=== PATIENT | female | born 1990 | race African-American/Black ===

== ENCOUNTER 2017-01-03 07:04 | Emergency (ER) | payer MEDICAID, OTHER ==
[~2017-01-03] VITALS: Ht 180.3 cm; Wt 81.6 kg
[2017-01-03 07:16] VITALS: BP 135/76
[2017-01-03] MEDS ORDERED: KETOROLAC TROMETH 60MG/2ML VIAL IM ONE (07:45)
[2017-01-03] MEDS ORDERED: ALPRAZolam 0.5 MG TAB PO ONE (07:45)
== END 2017-01-03 09:17 | disposition home or self-care (01) ==
LOC: ER 07:18
DX: F41.9 Anxiety disorder, unspecified (principal); Z88.6 Allergy status to analgesic agent; Z88.8 Allergy status to other drugs, medicaments and biological substances
CPT/HCPCS: 96372; 99284; J1885

== ENCOUNTER 2017-07-10 11:06 | Emergency (ER) | payer MEDICAID, OTHER ==
[~2017-07-10] VITALS: Ht 180.3 cm; Wt 89.4 kg
[2017-07-10 11:11] VITALS: BP 120/68
[2017-07-10 11:34] LABS: Basophils # (auto) 0 uL; Basophils % (auto) 0.4 % (0.0-2.0); Eosinophils # (auto) 0.1 uL; Eosinophils % (auto) 1.6 % (0.0-7.0); Hematocrit 42.9 % (36.0-46.0); Hemoglobin 14.4 g/dL (12.2-16.2); Lymphocytes # (auto) 1.6 uL; Lymphocytes % (auto) 31.5 % (10.0-50.0); Mean Corpuscular Hemoglobin 29.4 pg (28.0-32.0); Mean Corpuscular Hgb Conc. 33.5 g/dL (32.0-36.0); Mean Corpuscular Volume 87.8 fL (80.0-100.0); Mean Platelet Volume 7.9 fL (6.9-10.8); Monocytes # (auto) 0.2 uL; Monocytes % (auto) 3.8 % (0.0-12.0); Neutrophils # (auto) 3.1 uL; Neutrophils % (auto) 62.7 % (37.0-80.0); Nucleated Red Blood Cells % 0.2 %; Platelet Count (auto) 238 10^3/uL (140-450); Red Cell Distribution Width 13.8 % (11.8-14.3); White Blood Cell 4.9 10^3/uL (4.4-10.8)
[2017-07-10 11:55] LABS: Albumin 3.6 g/dL (3.4-5.0); BUN/Creatinine Ratio 10.9; Bilirubin, Total 0.3 mg/dL (0.2-1.0); Potassium 4.1 mmol/L (3.5-5.1); Total Protein 7.8 g/dL (6.4-8.2)
[2017-07-10 13:41] LABS: Urine Bilirubin Negative (Negative); Urine Blood Negative /uL (Negative); Urine Color Yellow (Yellow); Urine Glucose Normal (Normal); Urine Ketone Negative (Negative); Urine Mucus FEW (None Seen); Urine Nitrite Negative (Negative); Urine RBC <1 /hpf (0 - 4); Urine Sperm PRESENT /hpf (None Seen); Urine Squamous Epithelial Cell FEW /hpf (<5); Urine Urobilinogen Normal (Negative); Urine pH 6.5 (5.0-8.0)
== END 2017-07-10 14:59 | disposition left against medical advice (07) ==
LOC: ER 11:06
DX: O20.9 Hemorrhage in early pregnancy, unspecified (principal); Z3A.00 Weeks of gestation of pregnancy not specified; Z53.21 Procedure and treatment not carried out due to patient leaving prior to being seen by health care provider
CPT/HCPCS: 36415; 76801; 76817; 80053; 81001; 84702; 85025

== ENCOUNTER 2017-08-14 08:11 | Emergency (ER) | payer MEDICAID ==
[~2017-08-14] VITALS: Ht 177.8 cm; Wt 81.6 kg
[2017-08-14 08:50] LABS: Urine Bilirubin Negative (Negative); Urine Blood 3+ /uL (Negative); Urine Color Red (Yellow); Urine Glucose Normal (Normal); Urine Ketone TRACE (Negative); Urine Mucus FEW (None Seen); Urine Nitrite Negative (Negative); Urine RBC 1266 /hpf (0 - 4); Urine Squamous Epithelial Cell MOD /hpf (<5); Urine Urobilinogen Normal (Negative); Urine WBC Clumps PRESENT /hpf (None Seen); Urine pH 5.5 (5.0-8.0)
[2017-08-14 09:13] LABS: Basophils # (auto) 0 uL; Basophils % (auto) 0.3 % (0.0-2.0); Eosinophils # (auto) 0 uL; Hematocrit 34.3 % (36.0-46.0); Hemoglobin 11.4 g/dL (12.2-16.2); Lymphocytes # (auto) 1.4 uL; Lymphocytes % (auto) 27.5 % (10.0-50.0); Mean Corpuscular Hemoglobin 28.1 pg (28.0-32.0); Mean Corpuscular Hgb Conc. 33.1 g/dL (32.0-36.0); Mean Corpuscular Volume 84.8 fL (80.0-100.0); Mean Platelet Volume 7.9 fL (6.9-10.8); Monocytes # (auto) 0.4 uL; Monocytes % (auto) 7.7 % (0.0-12.0); Neutrophils # (auto) 3.1 uL; Neutrophils % (auto) 63.5 % (37.0-80.0); Nucleated Red Blood Cells % 0.1 %; Platelet Count (auto) 272 10^3/uL (140-450); Red Cell Distribution Width 14.1 % (11.8-14.3)
[2017-08-14 09:29] LABS: Albumin 3.7 g/dL (3.4-5.0); BUN/Creatinine Ratio 16.1; Bilirubin, Total 0.3 mg/dL (0.2-1.0); Calcium 8.8 mg/dL (8.5-10.1); Potassium 4.2 mmol/L (3.5-5.1); Total Protein 7.8 g/dL (6.4-8.2)
[2017-08-14 13:18] VITALS: BP 110/74
== END 2017-08-14 13:21 | disposition home or self-care (01) ==
LOC: ER 08:11
DX: O23.41 Unspecified infection of urinary tract in pregnancy, first trimester (principal); O03.9 Complete or unspecified spontaneous abortion without complication; Z88.6 Allergy status to analgesic agent; Z88.8 Allergy status to other drugs, medicaments and biological substances
CPT/HCPCS: 36415; 76801; 76817; 80053; 81001; 84702; 85025

== ENCOUNTER 2017-11-15 16:42 | Emergency (ER) | payer MEDICAID ==
[~2017-11-15] VITALS: Ht 180.3 cm; Wt 92.1 kg
[2017-11-15 19:13] LABS: Urine Bacteria FEW /hpf (None Seen); Urine Blood 2+ /uL (Negative); Urine Specific Gravity 1.017 (1.001-1.035); Urine WBC 1 /hpf (0 - 5)
[2017-11-15 19:30] VITALS: BP 127/75
== END 2017-11-15 19:55 | disposition home or self-care (01) ==
LOC: ER 16:48
DX: F41.9 Anxiety disorder, unspecified (principal); Z88.6 Allergy status to analgesic agent; Z88.8 Allergy status to other drugs, medicaments and biological substances
CPT/HCPCS: 71046; 81001; 81025; 93005

== ENCOUNTER 2018-01-18 08:51 | Emergency (ER) | payer MEDICAID ==
[~2018-01-18] VITALS: Ht 180.3 cm; Wt 82.6 kg
[2018-01-18 08:59] VITALS: BP 102/78
[2018-01-18] MEDS ORDERED: KETOROLAC TROMETH 60MG/2ML VIAL IM ONE (10:00)
[2018-01-18] MEDS ORDERED: ONDANSETRON ODT 4 MG TAB PO ONE (10:00)
== END 2018-01-18 10:26 | disposition home or self-care (01) ==
LOC: ER 08:51
DX: F41.1 Generalized anxiety disorder (principal); G43.909 Migraine, unspecified, not intractable, without status migrainosus; Z88.6 Allergy status to analgesic agent; Z88.8 Allergy status to other drugs, medicaments and biological substances
CPT/HCPCS: 81002; 96372; 99284; J1885; Q0162

== ENCOUNTER 2018-12-02 17:06 | Emergency (ER) | payer MEDICAID ==
[~2018-12-02] VITALS: Ht 172.7 cm; Wt 90.7 kg
[2018-12-02 18:12] LABS: Basophils # (auto) 0 uL; Basophils % (auto) 0.5 % (0.0-2.0); Eosinophils # (auto) 0 uL; Eosinophils % (auto) 0.7 % (0.0-7.0); Hematocrit 41.6 % (36.0-46.0); Hemoglobin 13.9 g/dL (12.2-16.2); Lymphocytes # (auto) 2.2 uL; Lymphocytes % (auto) 28.4 % (10.0-50.0); Mean Corpuscular Hgb Conc. 33.5 g/dL (32.0-36.0); Mean Corpuscular Volume 86.6 fL (80.0-100.0); Monocytes # (auto) 0.6 uL; Monocytes % (auto) 7.6 % (0.0-12.0); Neutrophils # (auto) 4.8 uL; Neutrophils % (auto) 62.8 % (37.0-80.0); Nucleated Red Blood Cells % 0.1 %; Platelet Count (auto) 240 10^3/uL (140-450); Red Blood Cells 4.81 10^6/uL (4.0-5.20); White Blood Cell 7.6 10^3/uL (4.4-10.8)
[2018-12-02 20:20] VITALS: BP 125/78
== END 2018-12-02 20:56 | disposition home or self-care (01) ==
LOC: ER 17:10
DX: O20.0 Threatened abortion (principal); Z3A.01 Less than 8 weeks gestation of pregnancy
CPT/HCPCS: 36415; 76801; 76817; 84702; 85025

== ENCOUNTER 2019-02-04 08:22 | Emergency (ER) | payer MEDICAID ==
[~2019-02-04] VITALS: Ht 180.3 cm; Wt 95.3 kg
[2019-02-04 09:00] VITALS: BP 130/68
[2019-02-04 09:07] LABS: Basophils # (auto) 0 uL; Basophils % (auto) 0.3 % (0.0-2.0); Eosinophils # (auto) 0 uL; Eosinophils % (auto) 0.5 % (0.0-7.0); Hematocrit 40.4 % (36.0-46.0); Hemoglobin 13.7 g/dL (12.2-16.2); Lymphocytes # (auto) 1.6 uL; Mean Corpuscular Hemoglobin 29.8 pg (28.0-32.0); Mean Corpuscular Hgb Conc. 33.9 g/dL (32.0-36.0); Mean Corpuscular Volume 88.1 fL (80.0-100.0); Monocytes # (auto) 0.4 uL; Monocytes % (auto) 5.9 % (0.0-12.0); Neutrophils # (auto) 5.2 uL; Neutrophils % (auto) 71.3 % (37.0-80.0); Platelet Count (auto) 229 10^3/uL (140-450); Red Blood Cells 4.59 10^6/uL (4.0-5.20); Red Cell Distribution Width 14.4 % (11.8-14.3); White Blood Cell 7.3 10^3/uL (4.4-10.8)
[2019-02-04 09:38] LABS: Urine Bacteria MOD /hpf (None Seen); Urine Blood Negative /uL (Negative); Urine Mucus FEW (None Seen); Urine Specific Gravity 1.018 (1.001-1.035); Urine WBC 10 /hpf (0 - 5)
== END 2019-02-04 10:22 | disposition home or self-care (01) ==
LOC: ER 08:24
DX: O20.0 Threatened abortion (principal); O23.42 Unspecified infection of urinary tract in pregnancy, second trimester; O99.342 Other mental disorders complicating pregnancy, second trimester; F41.9 Anxiety disorder, unspecified; Z3A.15 15 weeks gestation of pregnancy; Z88.6 Allergy status to analgesic agent; Z88.5 Allergy status to narcotic agent
CPT/HCPCS: 36415; 76805; 81001; 84702; 85025

== ENCOUNTER 2019-03-17 08:25 | Observation (INO) | payer MEDICAID | END 2019-03-17 11:50 | disposition home or self-care (01) | DRG 566 | LOC: LDRP 08:25 | PROVIDERS: ADMIT Obstetrics & Gynecology; ATTEND Obstetrics & Gynecology | DX: O46.92 Antepartum hemorrhage, unspecified, second trimester (principal); O26.892 Other specified pregnancy related conditions, second trimester; R51 Headache; R10.9 Unspecified abdominal pain; O99.612 Diseases of the digestive system complicating pregnancy, second trimester; K21.9 Gastro-esophageal reflux disease without esophagitis; O21.2 Late vomiting of pregnancy; Z3A.21 21 weeks gestation of pregnancy | CPT/HCPCS: 59025; 76815; 81002; G0378 ==

== ENCOUNTER 2019-03-22 07:10 | Emergency (ER) | payer MEDICAID ==
[~2019-03-22] VITALS: Ht 180.3 cm; Wt 98.0 kg
[2019-03-22 07:30] VITALS: BP 123/68
[2019-03-22] MEDS ORDERED: ONDANSETRON ODT 4 MG TAB PO ONE (07:45)
== END 2019-03-22 08:03 | disposition home or self-care (01) ==
LOC: ER 07:10
DX: O99.342 Other mental disorders complicating pregnancy, second trimester (principal); F41.9 Anxiety disorder, unspecified; Z3A.22 22 weeks gestation of pregnancy
CPT/HCPCS: 99284; Q0162

== ENCOUNTER 2019-06-01 11:15 | Observation (INO) | payer MEDICAID | END 2019-06-01 13:45 | disposition home or self-care (01) | DRG 566 | LOC: LDRP 11:15 | PROVIDERS: ADMIT Specialist; ATTEND Specialist | DX: O26.893 Other specified pregnancy related conditions, third trimester (principal); M54.9 Dorsalgia, unspecified; R10.2 Pelvic and perineal pain; R51 Headache; Z3A.32 32 weeks gestation of pregnancy | CPT/HCPCS: 59025; 76815; 81002; G0378 ==

== ENCOUNTER 2019-06-17 15:15 | Observation (INO) | payer MEDICAID ==
[~2019-06-17] VITALS: Ht 30.5 cm; Wt 0.5 kg
--- NOTE | 2019-06-17 15:39 | NUR ---
Pt declines to discuss her suicidal history any further. Pt requests not to answer any more questions at this time. Addendum: 06/17/19 at 1758 by Gregoria Stuart RN Amended: Links added.
[2019-06-17 16:31] LABS: Urine Bacteria MANY /hpf (None Seen); Urine Blood Negative /uL (Negative); Urine Mucus FEW (None Seen); Urine Specific Gravity 1.012 (1.001-1.035); Urine WBC 26 /hpf (0 - 5)
[2019-06-17] MEDS ORDERED: CEFTRIAXONE SODIUM 2 GM in D5W 5% 50 ML IV ONE (16:45)
[2019-06-17 17:00] LABS: Alcohol, Urine < 3.0 mg/dL (0-5); Amphetamine Screen, Urine NEGATIVE (NEGATIVE); Barbiturate Scree,Urine NEGATIVE (NEGATIVE); Benzodiazephine Screen, Urine NEGATIVE (NEGATIVE); Cannabinoid Screen, Urine NEGATIVE (NEGATIVE); Cocaine Screen, Urine NEGATIVE (NEGATIVE); Opiate Scree,Urine NEGATIVE (NEGATIVE); Phencyclidine Screen, Urine NEGATIVE (NEGATIVE)
[2019-06-18] MEDS ORDERED: PREN-96 PO (14:00)
== END 2019-06-17 17:05 | disposition left against medical advice (07) | DRG 566 ==
LOC: LDRP 15:15
PROVIDERS: ADMIT Specialist; ATTEND Specialist
DX: O26.893 Other specified pregnancy related conditions, third trimester (principal); M54.9 Dorsalgia, unspecified; R10.9 Unspecified abdominal pain; O99.89 Other specified diseases and conditions complicating pregnancy, childbirth and the puerperium; Z3A.35 35 weeks gestation of pregnancy
CPT/HCPCS: 59025; 80307; 81001; 81002; 87086; G0378; J0696; J7060; 96360

== ENCOUNTER 2019-07-13 08:25 | Observation (INO) | payer MEDICAID ==
[~2019-07-13 08:25] MED LIST: PREN-96 PO
== END 2019-07-13 10:30 | disposition home or self-care (01) | DRG 566 ==
LOC: LDRP 08:25
PROVIDERS: ADMIT Specialist; ATTEND Specialist
DX: O62.9 Abnormality of forces of labor, unspecified (principal); Z3A.38 38 weeks gestation of pregnancy
CPT/HCPCS: 59025; 81002; 84112; G0378

== ENCOUNTER 2019-07-18 09:32 | Observation (INO) | payer MEDICAID | END 2019-07-18 10:35 | disposition home or self-care (01) | DRG 566 | LOC: NUR 09:32 | PROVIDERS: ADMIT Obstetrics & Gynecology; ATTEND Obstetrics & Gynecology | DX: O62.9 Abnormality of forces of labor, unspecified (principal); Z3A.39 39 weeks gestation of pregnancy | CPT/HCPCS: 59025; 81002; G0378 ==

== ENCOUNTER 2019-07-26 11:48 | Emergency (ER) | payer MEDICAID ==
[~2019-07-26] VITALS: Ht 180.3 cm; Wt 97.5 kg
[2019-07-26 13:05] LABS: Urine Bacteria FEW /hpf (None Seen); Urine Blood 3+ /uL (Negative); Urine Specific Gravity 1.013 (1.001-1.035); Urine WBC 15 /hpf (0 - 5)
[2019-07-26 13:40] VITALS: BP 132/85
== END 2019-07-26 14:29 | disposition home or self-care (01) ==
LOC: ER 11:48
DX: S76.011A Strain of muscle, fascia and tendon of right hip, initial encounter (principal); N39.0 Urinary tract infection, site not specified; Z88.5 Allergy status to narcotic agent; Z88.8 Allergy status to other drugs, medicaments and biological substances; Z79.899 Other long term (current) drug therapy; X58.XXXA Exposure to other specified factors, initial encounter; Y93.89 Activity, other specified; Y92.89 Other specified places as the place of occurrence of the external cause; Y99.8 Other external cause status
CPT/HCPCS: 72131; 81001; 93971

== ENCOUNTER 2020-07-02 09:08 | Emergency (ER) | payer MEDICAID ==
[~2020-07-02] VITALS: Ht 180.3 cm; Wt 99.8 kg
[~2020-07-02 09:08] MED LIST changes: +CEPH-37 PO; +ENO100SY SC; +WARF1TAB PO
[2020-07-02 10:13] LABS: Basophils # (auto) 0 10 ^3/uL (0-0.2); Basophils % (auto) 0.3 % (0.0-2.0); Eosinophils # (auto) 0.1 10 ^3/uL (0-0.8); Eosinophils % (auto) 0.8 % (0.0-7.0); Hematocrit 43.3 % (36.0-46.0); Hemoglobin 14.5 g/dL (12.2-16.2); Lymphocytes # (auto) 1.9 10 ^3/uL (0.4-5.4); Lymphocytes % (auto) 28.1 % (10.0-50.0); Mean Corpuscular Hemoglobin 28.8 pg (28.0-32.0); Mean Corpuscular Hgb Conc. 33.6 g/dL (32.0-36.0); Mean Corpuscular Volume 85.9 fL (80.0-100.0); Monocytes # (auto) 0.4 10 ^3/uL (0-1.3); Monocytes % (auto) 5.7 % (0.0-12.0); Neutrophils # (auto) 4.4 10 ^3/uL (1.6-8.6); Neutrophils % (auto) 65.1 % (37.0-80.0); Nucleated Red Blood Cells % 0.2 %; Platelet Count (auto) 256 10^3/uL (140-450); Red Blood Cells 5.05 10^6/uL (4.0-5.20); Red Cell Distribution Width 14.1 % (11.8-14.3); White Blood Cell 6.7 10^3/uL (4.4-10.8)
[2020-07-02 10:54] LABS: Urine Bacteria MOD /hpf (None Seen); Urine Blood 3+ /uL (Negative); Urine Mucus FEW (None Seen); Urine Specific Gravity 1.019 (1.001-1.035); Urine WBC 154 /hpf (0 - 5)
[2020-07-02 11:23] VITALS: BP 127/79
[2020-07-02] MEDS ORDERED: SODIUM CHLORIDE 0.9% 1,000 ML IV ONE ×2 (11:45)
[2020-07-02] MEDS ORDERED: cefTRIAXone 1GM/50ML D5W 50 ML IV ONE (12:30)
[2020-07-02] MEDS ORDERED: FOLIC ACID 1 MG TAB PO ONE (12:30)
[2020-07-02] MEDS ORDERED: diphenhdrAMINE HCL 50 MG/1 ML VL ONE (12:49)
[2020-07-02] MEDS ORDERED: FAMOTIDINE (10MG/ML) 2ML VL IV ONE ×2 (12:50→13:00)
[2020-07-02] MEDS ORDERED: diphenhdrAMINE HCL 50 MG/1 ML VL IV ONE (13:00)
[2020-07-02 13:32] LABS: Albumin 3.4 g/dL (3.4-5.0); BUN/Creatinine Ratio 9.8; Calcium 9.3 mg/dL (8.5-10.1); Potassium 3.8 mmol/L (3.5-5.1)
[2020-07-02 13:35] LABS: Bilirubin, Total 0.3 mg/dL (0.2-1.0)
== END 2020-07-02 13:10 | disposition home or self-care (01) ==
LOC: ER 09:08
DX: O20.8 Other hemorrhage in early pregnancy (principal); O23.41 Unspecified infection of urinary tract in pregnancy, first trimester; Z88.6 Allergy status to analgesic agent; Z88.8 Allergy status to other drugs, medicaments and biological substances; Z3A.01 Less than 8 weeks gestation of pregnancy
CPT/HCPCS: 36415; 76801; 80053; 81001; 84702; 85025; 96361; 96365; 96375; 99284; J0696; J1200; J3490; J7030

== ENCOUNTER 2020-10-16 16:40 | Observation (INO) | payer MEDICAID | END 2020-10-16 18:46 | disposition home or self-care (01) | LOC: LDRP 16:40 | PROVIDERS: ADMIT Obstetrics & Gynecology; ATTEND Obstetrics & Gynecology | DX: O62.9 Abnormality of forces of labor, unspecified (principal); O26.892 Other specified pregnancy related conditions, second trimester; R51.9 Headache, unspecified; R22.0 Localized swelling, mass and lump, head; Z3A.26 26 weeks gestation of pregnancy; Z86.711 Personal history of pulmonary embolism; Z91.19 Patient's noncompliance with other medical treatment and regimen; W18.39XA Other fall on same level, initial encounter; Y93.89 Activity, other specified; Y92.89 Other specified places as the place of occurrence of the external cause; Y99.8 Other external cause status | CPT/HCPCS: 59025; 76815; 81002; 94760; G0378 ==

== ENCOUNTER 2020-12-03 11:20 | Observation (INO) | payer MEDICAID | END 2020-12-03 12:35 | disposition home or self-care (01) | LOC: LDRP 11:20 | PROVIDERS: ADMIT Specialist; ATTEND Specialist | DX: O26.893 Other specified pregnancy related conditions, third trimester (principal); R10.10 Upper abdominal pain, unspecified; Z3A.33 33 weeks gestation of pregnancy | CPT/HCPCS: 59025; 81002; G0378 ==

== ENCOUNTER 2020-12-03 12:37 | Emergency (ER) | payer MEDICAID | END 2020-12-03 13:06 | disposition left against medical advice (07) | LOC: ER 12:37 | DX: R10.9 Unspecified abdominal pain (principal); Z53.21 Procedure and treatment not carried out due to patient leaving prior to being seen by health care provider ==

== ENCOUNTER 2021-01-19 19:21 | Inpatient (IN) | payer MEDICAID ==
[~2021-01-19] VITALS: Ht 180.3 cm; Wt 103.4 kg
[2021-01-19] MEDS ORDERED: MORPHINE SULFATE 4 MG/ML SYR/VIAL IV ONE (20:15)
[2021-01-19] MEDS ORDERED: ONDANSETRON HCL 4 MG/2 ML VIAL IV ONE (20:15)
[2021-01-19 20:34] LABS: Basophils # (auto) 0.1 10 ^3/uL (0-0.2); Basophils % (auto) 0.8 % (0.0-2.0); Eosinophils # (auto) 0.1 10 ^3/uL (0-0.8); Eosinophils % (auto) 1.3 % (0.0-7.0); Hematocrit 42.6 % (36.0-46.0); Hemoglobin 14.8 g/dL (12.2-16.2); Lymphocytes # (auto) 2.3 10 ^3/uL (0.4-5.4); Lymphocytes % (auto) 32.1 % (10.0-50.0); Mean Corpuscular Hemoglobin 29.7 pg (28.0-32.0); Mean Corpuscular Hgb Conc. 34.8 g/dL (32.0-36.0); Mean Corpuscular Volume 85.2 fL (80.0-100.0); Monocytes # (auto) 0.4 10 ^3/uL (0-1.3); Monocytes % (auto) 5.8 % (0.0-12.0); Neutrophils # (auto) 4.2 10 ^3/uL (1.6-8.6); Nucleated Red Blood Cells % 0.1 %; Red Cell Distribution Width 15.9 % (11.8-14.3); White Blood Cell 7.1 10^3/uL (4.4-10.8)
[2021-01-19 20:51] LABS: Albumin 3.5 g/dL (3.4-5.0); Calcium 8.7 mg/dL (8.5-10.1); Magnesium 2.3 mg/dL (1.6-2.6)
[2021-01-19] MEDS ORDERED: IOHEXOL 350 MG/ML 100ML IJ ONE (20:52)
[2021-01-19 20:56] LABS: BUN/Creatinine Ratio 15.5; Bilirubin, Total 0.2 mg/dL (0.2-1.0); Total Protein 7.5 g/dL (6.4-8.2)
[2021-01-19] MEDS ORDERED: ENOXAPARIN SOD 100 MG/1 ML SYRINGE SC ONE (22:00)
[2021-01-19 23:16] LABS: Urine Bacteria FEW /hpf (None Seen); Urine WBC 20 /hpf (0 - 5)
[2021-01-20] MEDS ORDERED: LIDOCAINE 5% TOPICAL PATCH TOP ONE (00:15)
[2021-01-20] MEDS ORDERED: MORPHINE SULFATE INJECTION 2 MG/ML SYRG IV ONE ×2 (02:45→15:30)
[2021-01-20] MEDS ORDERED: ONDANSETRON HCL 4 MG/2 ML VIAL IV ONE (02:45)
[2021-01-20] MEDS ORDERED: OXYCODONE W/ ACETAMINOPHEN 5/325MG TABLET PO ONE (05:15)
[2021-01-20] MEDS: ACETAMINOPHEN 325 MG TAB PO PRN ×2 (11:25→21:25)
[2021-01-20 13:30] VITALS: BP 130/83
[2021-01-20 15:04] LABS: INR 1.05 (0.9-1.15); Partial Thromboplastin Time 30.1 sec (23.0-31.2)
[2021-01-20] MEDS ORDERED: MORPHINE SULFATE INJECTION 2 MG/ML SYRG IV PRN (15:30)
[2021-01-20 17:00] VITALS: BP 133/84
[2021-01-20] MEDS ORDERED: WARFARIN SODIUM 10 MG TAB PO ONE (17:00)
[2021-01-20] MEDS ORDERED: WARF5TAB71 PO (17:20)
[2021-01-20] MEDS ORDERED: ENO100SY SC (17:20)
[2021-01-20 19:13] VITALS: BP 133/84
[2021-01-20] MEDS ORDERED: levoFLOXacin 750MG 150 ML IV ONE (21:00)
[2021-01-20 21:43] LABS: Urine Bacteria NONE SEEN /hpf (None Seen); Urine Blood 2+ /uL (Negative); Urine Specific Gravity 1.013 (1.001-1.035); Urine WBC 29 /hpf (0 - 5)
[2021-01-20] MEDS ORDERED: ENOXAPARIN SOD 100 MG/1 ML SYRINGE SC SCH (22:00)
[2021-01-20] MEDS ORDERED: HYDROcodone-ACET 5/325MG TAB PO PRN (23:00)
[2021-01-20] MEDS ORDERED: levoFLOXacin 500MG 100 ML IV SCH (23:00)
[2021-01-21] MEDS ORDERED: PRENATAL VITAMIN TAB PO SCH (10:00)
[2021-01-21] MEDS ORDERED: PANTOPRAZOLE 40 MG TAB PO SCH (10:00)
== END 2021-01-20 23:40 | disposition left against medical advice (07) | DRG 134 ==
LOC: ER 19:21 → TELE 01-20 11:58 → TELE-EAST 01-20 13:30
PROVIDERS: ADMIT Internal Medicine; ATTEND Internal Medicine
DX: I26.99 Other pulmonary embolism without acute cor pulmonale (principal); E66.01 Morbid (severe) obesity due to excess calories; N39.0 Urinary tract infection, site not specified; F41.9 Anxiety disorder, unspecified; M54.9 Dorsalgia, unspecified; Z53.29 Procedure and treatment not carried out because of patient's decision for other reasons; Z68.30 Body mass index [BMI] 30.0-30.9, adult; Z86.711 Personal history of pulmonary embolism; Z20.822 Contact with and (suspected) exposure to COVID-19
CPT/HCPCS: 36415; 36600; 70450; 71275; 74176; 80053; 81001; 81015; 82805; 83735; 85025; 85379; 85610; 85730; 87040; 87086; 87426; 93005; 96372; 96374; 96375; 96376; 99291; G0378; J1956; J2405

== ENCOUNTER 2021-02-04 15:25 | Inpatient (IN) | payer MEDICAID ==
[~2021-02-04] VITALS: Ht 180.3 cm; Wt 98.7 kg
[~2021-02-04 15:25] MED LIST changes: -CEPH-37 PO; -WARF1TAB PO; +WARF5TAB71 PO
[2021-02-04 16:22] LABS: Basophils # (auto) 0 10 ^3/uL (0-0.2); Basophils % (auto) 0.3 % (0.0-2.0); Eosinophils # (auto) 0.1 10 ^3/uL (0-0.8); Eosinophils % (auto) 0.9 % (0.0-7.0); Hematocrit 42.3 % (36.0-46.0); Lymphocytes # (auto) 2.1 10 ^3/uL (0.4-5.4); Lymphocytes % (auto) 21.5 % (10.0-50.0); Mean Corpuscular Hemoglobin 29.9 pg (28.0-32.0); Mean Corpuscular Hgb Conc. 35.5 g/dL (32.0-36.0); Mean Corpuscular Volume 84.2 fL (80.0-100.0); Monocytes # (auto) 0.6 10 ^3/uL (0-1.3); Monocytes % (auto) 6.4 % (0.0-12.0); Neutrophils # (auto) 6.9 10 ^3/uL (1.6-8.6); Neutrophils % (auto) 70.9 % (37.0-80.0); Nucleated Red Blood Cells % 0.7 %; Platelet Count (auto) 262 10^3/uL (140-450); Red Blood Cells 5.02 10^6/uL (4.0-5.20); Red Cell Distribution Width 16.1 % (11.8-14.3); White Blood Cell 9.7 10^3/uL (4.4-10.8)
[2021-02-04 16:33] LABS: Albumin 3.5 g/dL (3.4-5.0); Anion Gap 7 (5-15); Blood Urea Nitrogen 11 mg/dL (7-18); Carbon Dioxide 25 mmol/L (21-32); Chloride 104 mmol/L (98-107); Glucose 106 mg/dL (74-106); Magnesium 2.4 mg/dL (1.6-2.6); Potassium 4.1 mmol/L (3.5-5.1); Sodium 136 mmol/L (136-145)
[2021-02-04 16:39] LABS: Alanine Aminotransferase 22 U/L (13-56); Alkaline Phosphatase 99 U/L (45-117); Aspartate Aminotransferase 7 U/L (15-37); BUN/Creatinine Ratio 19.3; Bilirubin, Total 0.3 mg/dL (0.2-1.0); GFR African American 159 mL/min; GFR Non-African American 131 mL/min
[2021-02-04] MEDS ORDERED: MORPHINE SULF INJ 2 MG/ML SYRINGE 1ML IV ONE (17:30)
[2021-02-04] MEDS ORDERED: ONDANSETRON HCL 4 MG/2 ML VIAL IV ONE (17:30)
[2021-02-04] MEDS: AZITHROMYCIN 500MG/ 250ML 250 ML IV ONE ×2 (17:45→18:00)
[2021-02-04 17:48] LABS: INR 1.18 (0.9-1.15); Partial Thromboplastin Time 27.2 sec (23.0-31.2)
[2021-02-04] MEDS ORDERED: ACETAMINOPHEN 325 MG TAB PO PRN (18:30)
[2021-02-04] MEDS ORDERED: MORPHINE SULF INJ 2 MG/ML SYRINGE 1ML IV PRN ×2 (18:30→20:15)
[2021-02-04] MEDS ORDERED: ONDANSETRON HCL 4 MG/2 ML VIAL IV PRN ×2 (18:30→20:15)
[2021-02-04] MEDS ORDERED: NITROGLYCERIN 0.4 MG SL TAB SL PRN (18:30)
[2021-02-04] MEDS ORDERED: HEPARIN DRIP/D5W 100UNITS/ML 250 ML IV SCH (18:30)
[2021-02-04] MEDS ORDERED: HEPARIN SODIUM (PORCINE) 5000 UNITS/ML 1ML VIAL IV ONE (18:30)
[2021-02-04] MEDS ORDERED: IOHEXOL 350 MG/ML 100ML IJ ONE (18:44)
[2021-02-04 19:02] LABS: Basophils # (auto) 0 10 ^3/uL (0-0.2); Basophils % (auto) 0.2 % (0.0-2.0); Eosinophils # (auto) 0.1 10 ^3/uL (0-0.8); Hematocrit 42.8 % (36.0-46.0); Hemoglobin 14.9 g/dL (12.2-16.2); Lymphocytes # (auto) 2.4 10 ^3/uL (0.4-5.4); Lymphocytes % (auto) 23.5 % (10.0-50.0); Mean Corpuscular Hemoglobin 29.3 pg (28.0-32.0); Mean Corpuscular Hgb Conc. 34.7 g/dL (32.0-36.0); Mean Corpuscular Volume 84.5 fL (80.0-100.0); Monocytes # (auto) 0.7 10 ^3/uL (0-1.3); Neutrophils # (auto) 6.9 10 ^3/uL (1.6-8.6); Neutrophils % (auto) 68.3 % (37.0-80.0); Nucleated Red Blood Cells % 0.1 %; Platelet Count (auto) 265 10^3/uL (140-450); Red Blood Cells 5.06 10^6/uL (4.0-5.20); Red Cell Distribution Width 15.8 % (11.8-14.3); White Blood Cell 10.2 10^3/uL (4.4-10.8)
[2021-02-04] MEDS ORDERED: HEPARIN SODIUM (PORCINE) 5000 UNITS/ML 1ML VIAL ONE (20:02)
[2021-02-04] MEDS ORDERED: ALBUTEROL SULF 2.5 MG/0.5ML(0.5%) NEB SOLN NEB PRN (21:15)
[2021-02-04 21:30] VITALS: BP 119/80
[2021-02-04] MEDS: ALPRAZolam 0.25 MG TAB PO PRN (21:35)
[2021-02-04] MEDS: HYDROmorphone HCL 2 MG/ML VL IV PRN (21:35)
[2021-02-04] MEDS ORDERED: HYDROmorphone HCL 2 MG/ML VL IV PRN (23:00)
[2021-02-04] MEDS ORDERED: HYDROcodone-ACET 10/325MG TAB PO PRN (23:00)
[2021-02-05] MEDS: levoFLOXacin 500MG 100 ML IV SCH ×2 (01:17→09:11)
[2021-02-05 01:22] VITALS: BP 112/77
[2021-02-05] MEDS ORDERED: ACET-1156 PO (01:57)
[2021-02-05] MEDS: SOD CHL 0.45% 1,000 ML IV SCH ×3 (02:17→15:09)
[2021-02-05] MEDS: HYDROmorphone HCL 2 MG/ML VL IV PRN ×5 (03:54→22:02)
[2021-02-05] MEDS: ALPRAZolam 0.25 MG TAB PO PRN ×2 (04:08→16:08)
[2021-02-05 05:00] VITALS: BP 114/67
[2021-02-05 07:33] LABS: Basophils # (auto) 0 10 ^3/uL (0-0.2); Basophils % (auto) 0.3 % (0.0-2.0); Eosinophils # (auto) 0.1 10 ^3/uL (0-0.8); Eosinophils % (auto) 0.9 % (0.0-7.0); Hemoglobin 14.8 g/dL (12.2-16.2); Lymphocytes # (auto) 1.9 10 ^3/uL (0.4-5.4); Lymphocytes % (auto) 19.4 % (10.0-50.0); Mean Corpuscular Hemoglobin 29.5 pg (28.0-32.0); Mean Corpuscular Hgb Conc. 35.2 g/dL (32.0-36.0); Mean Corpuscular Volume 83.8 fL (80.0-100.0); Monocytes # (auto) 0.6 10 ^3/uL (0-1.3); Monocytes % (auto) 6.4 % (0.0-12.0); Nucleated Red Blood Cells % 0.1 %; Platelet Count (auto) 248 10^3/uL (140-450); Red Blood Cells 5.01 10^6/uL (4.0-5.20); Red Cell Distribution Width 15.8 % (11.8-14.3); White Blood Cell 9.6 10^3/uL (4.4-10.8)
[2021-02-05 07:49] LABS: BUN/Creatinine Ratio 11.9; Calcium 9.2 mg/dL (8.5-10.1); Magnesium 2.1 mg/dL (1.6-2.6); Potassium 4.7 mmol/L (3.5-5.1)
[2021-02-05 07:56] LABS: INR 1.26 (0.9-1.15)
[2021-02-05 09:00] VITALS: BP 108/82
[2021-02-05] MEDS: HEPARIN DRIP/D5W 100UNITS/ML 250 ML IV SCH ×2 (09:03→15:59)
[2021-02-05 13:00] VITALS: BP 111/72
[2021-02-05 16:30] LABS: INR 1.18 (0.9-1.15)
[2021-02-05 17:06] VITALS: BP 123/72
[2021-02-05 22:14] VITALS: BP 115/72
[2021-02-05 23:15] LABS: INR 1.18 (0.9-1.15); Partial Thromboplastin Time 68.9 sec (23.0-31.2)
[2021-02-06] MEDS: SOD CHL 0.45% 1,000 ML IV SCH ×3 (00:21→20:40)
[2021-02-06] MEDS: HYDROmorphone HCL 2 MG/ML VL IV PRN ×5 (02:56→20:46)
[2021-02-06 04:00] VITALS: BP 119/66
[2021-02-06] MEDS: HEPARIN DRIP/D5W 100UNITS/ML 250 ML IV SCH ×2 (05:28→22:25)
[2021-02-06 05:38] LABS: Basophils # (auto) 0 10 ^3/uL (0-0.2); Basophils % (auto) 0.6 % (0.0-2.0); Eosinophils # (auto) 0.1 10 ^3/uL (0-0.8); Eosinophils % (auto) 1.2 % (0.0-7.0); Hematocrit 39.3 % (36.0-46.0); Hemoglobin 13.7 g/dL (12.2-16.2); Lymphocytes # (auto) 2.2 10 ^3/uL (0.4-5.4); Lymphocytes % (auto) 29.6 % (10.0-50.0); Mean Corpuscular Hemoglobin 29.4 pg (28.0-32.0); Mean Corpuscular Hgb Conc. 34.8 g/dL (32.0-36.0); Mean Corpuscular Volume 84.4 fL (80.0-100.0); Monocytes # (auto) 0.6 10 ^3/uL (0-1.3); Monocytes % (auto) 7.3 % (0.0-12.0); Neutrophils # (auto) 4.6 10 ^3/uL (1.6-8.6); Neutrophils % (auto) 61.3 % (37.0-80.0); Nucleated Red Blood Cells % 0.1 %; Platelet Count (auto) 217 10^3/uL (140-450); Red Blood Cells 4.65 10^6/uL (4.0-5.20); Red Cell Distribution Width 15.7 % (11.8-14.3); White Blood Cell 7.6 10^3/uL (4.4-10.8)
[2021-02-06] MEDS: ALPRAZolam 0.25 MG TAB PO PRN ×3 (05:40→18:38)
[2021-02-06 05:54] LABS: Albumin 3.1 g/dL (3.4-5.0); Calcium 8.8 mg/dL (8.5-10.1); Potassium 3.9 mmol/L (3.5-5.1)
[2021-02-06 05:58] LABS: BUN/Creatinine Ratio 16.1; Bilirubin, Total 0.4 mg/dL (0.2-1.0); Total Protein 7.4 g/dL (6.4-8.2)
[2021-02-06 06:01] LABS: INR 1.22 (0.9-1.15)
[2021-02-06 06:07] LABS: Partial Thromboplastin Time 80.1 sec (23.0-31.2)
[2021-02-06 08:27] LABS: Urine Bacteria NONE SEEN /hpf (None Seen); Urine Blood TRACE /uL (Negative); Urine Specific Gravity 1.009 (1.001-1.035); Urine WBC 77 /hpf (0 - 5); Urine WBC Clumps PRESENT /hpf (None Seen)
[2021-02-06 09:00] VITALS: BP 116/79
[2021-02-06] MEDS: levoFLOXacin 500MG 100 ML IV SCH (10:35)
[2021-02-06 10:55] LABS: INR 1.18 (0.9-1.15); Partial Thromboplastin Time 51.3 sec (23.0-31.2)
[2021-02-06 13:00] VITALS: BP 108/67
[2021-02-06 16:02] LABS: INR 1.19 (0.9-1.15); Partial Thromboplastin Time 55.4 sec (23.0-31.2)
[2021-02-06 17:00] VITALS: BP 134/93
[2021-02-06] MEDS ORDERED: SENNA 8.6 MG TAB PO PRN (17:15)
[2021-02-06 22:00] VITALS: BP 114/68
[2021-02-06] MEDS: DOCUSATE SOD 100 MG CAP PO SCH (22:09)
[2021-02-06 22:18] LABS: INR 1.16 (0.9-1.15); Partial Thromboplastin Time 54.6 sec (23.0-31.2)
[2021-02-07] MEDS: ALPRAZolam 0.25 MG TAB PO PRN ×3 (01:01→17:34)
[2021-02-07] MEDS: HYDROmorphone HCL 2 MG/ML VL IV PRN ×6 (01:01→22:15)
[2021-02-07 05:00] VITALS: BP 125/74
[2021-02-07] MEDS: SOD CHL 0.45% 1,000 ML IV SCH ×2 (07:02→18:20)
[2021-02-07 08:33] LABS: Basophils # (auto) 0 10 ^3/uL (0-0.2); Basophils % (auto) 0.7 % (0.0-2.0); Eosinophils # (auto) 0.2 10 ^3/uL (0-0.8); Eosinophils % (auto) 2.9 % (0.0-7.0); Hematocrit 38.2 % (36.0-46.0); Lymphocytes # (auto) 2.2 10 ^3/uL (0.4-5.4); Lymphocytes % (auto) 38.9 % (10.0-50.0); Mean Corpuscular Hemoglobin 28.6 pg (28.0-32.0); Mean Corpuscular Volume 84.2 fL (80.0-100.0); Monocytes # (auto) 0.4 10 ^3/uL (0-1.3); Monocytes % (auto) 6.7 % (0.0-12.0); Neutrophils # (auto) 2.9 10 ^3/uL (1.6-8.6); Neutrophils % (auto) 50.8 % (37.0-80.0); Nucleated Red Blood Cells % 0.1 %; Platelet Count (auto) 220 10^3/uL (140-450); Red Blood Cells 4.54 10^6/uL (4.0-5.20); Red Cell Distribution Width 15.5 % (11.8-14.3); White Blood Cell 5.7 10^3/uL (4.4-10.8)
[2021-02-07 09:00] VITALS: BP 121/80
[2021-02-07] MEDS: levoFLOXacin 500MG 100 ML IV SCH (09:20)
[2021-02-07] MEDS: DOCUSATE SOD 100 MG CAP PO SCH ×2 (09:20→22:15)
[2021-02-07] MEDS: OXYCODONE W/ ACETAMINOPHEN 5/325MG TABLET PO PRN ×2 (11:53→20:08)
[2021-02-07 13:00] VITALS: BP 139/91
[2021-02-07 17:00] VITALS: BP 121/78
[2021-02-07] MEDS: HEPARIN DRIP/D5W 100UNITS/ML 250 ML IV SCH (17:30)
[2021-02-07 22:00] VITALS: BP 139/68
[2021-02-07] MEDS: APIXABAN 5 MG TAB PO SCH (22:15)
[2021-02-07] MEDS ORDERED: POLYETHYLENE GLYCOL 17 GM PWDR PO ONE (22:45)
[2021-02-07] MEDS ORDERED: LACTULOSE 20Gm/30ML SOLN PO ONE (22:45)
[2021-02-08] MEDS: ALPRAZolam 0.25 MG TAB PO PRN ×2 (01:25→09:48)
[2021-02-08] MEDS: HYDROmorphone HCL 2 MG/ML VL IV PRN ×2 (02:26→06:36)
[2021-02-08] MEDS: SOD CHL 0.45% 1,000 ML IV SCH ×2 (02:30→12:30)
[2021-02-08] MEDS: OXYCODONE W/ ACETAMINOPHEN 5/325MG TABLET PO PRN ×2 (03:46→09:47)
[2021-02-08 06:05] VITALS: BP 102/53
[2021-02-08 09:00] VITALS: BP 122/82
[2021-02-08] MEDS: DOCUSATE SOD 100 MG CAP PO SCH (09:46)
[2021-02-08] MEDS: APIXABAN 5 MG TAB PO SCH (09:47)
[2021-02-08] MEDS: levoFLOXacin 500MG 100 ML IV SCH (09:49)
[2021-02-15] MEDS ORDERED: APIXABAN 5 MG TAB PO SCH (10:00)
== END 2021-02-08 13:30 | disposition home or self-care (01) | DRG 561 ==
LOC: EDBD 15:25 → ER 15:25 → TELE-CENTR 18:28
PROVIDERS: ADMIT Internal Medicine; ATTEND Internal Medicine
DX: O88.23 Thromboembolism in the puerperium (principal); J96.01 Acute respiratory failure with hypoxia; J18.9 Pneumonia, unspecified organism; E66.01 Morbid (severe) obesity due to excess calories; J98.11 Atelectasis; O99.53 Diseases of the respiratory system complicating the puerperium; O99.215 Obesity complicating the puerperium; O92.79 Other disorders of lactation; Z79.01 Long term (current) use of anticoagulants; Z86.711 Personal history of pulmonary embolism; Z91.19 Patient's noncompliance with other medical treatment and regimen; F41.9 Anxiety disorder, unspecified; O99.345 Other mental disorders complicating the puerperium; Z88.5 Allergy status to narcotic agent; Z20.822 Contact with and (suspected) exposure to COVID-19
CPT/HCPCS: 36415; 71045; 71275; 80048; 80053; 81001; 81241; 83605; 83735; 83880; 84443; 84484; 85025; 85610; 85730; 87040; 87081; 87426; 93005; 93306; 93970; 96365; 96375; 99291; G0378; J1956; J2405

== ENCOUNTER 2021-05-23 15:09 | Emergency (ER) | payer MEDICAID ==
[~2021-05-23] VITALS: Ht 177.8 cm; Wt 108.9 kg
[~2021-05-23 15:09] MED LIST changes: +ACET-1156 PO; -ENO100SY SC; -WARF5TAB71 PO
[2021-05-23 16:03] LABS: Basophils # (auto) 0 10 ^3/uL (0-0.2); Basophils % (auto) 0.5 % (0.0-2.0); Eosinophils # (auto) 0.1 10 ^3/uL (0-0.8); Eosinophils % (auto) 1.4 % (0.0-7.0); Hematocrit 40.5 % (36.0-46.0); Hemoglobin 13.7 g/dL (12.2-16.2); Lymphocytes # (auto) 2.5 10 ^3/uL (0.4-5.4); Lymphocytes % (auto) 34.1 % (10.0-50.0); Mean Corpuscular Hemoglobin 29.7 pg (28.0-32.0); Mean Corpuscular Hgb Conc. 33.9 g/dL (32.0-36.0); Mean Corpuscular Volume 87.6 fL (80.0-100.0); Monocytes # (auto) 0.5 10 ^3/uL (0-1.3); Monocytes % (auto) 6.8 % (0.0-12.0); Neutrophils # (auto) 4.2 10 ^3/uL (1.6-8.6); Neutrophils % (auto) 57.2 % (37.0-80.0); Nucleated Red Blood Cells % 0.1 %; Red Blood Cells 4.62 10^6/uL (4.0-5.20); Red Cell Distribution Width 13.1 % (11.8-14.3); White Blood Cell 7.3 10^3/uL (4.4-10.8)
[2021-05-23 16:18] LABS: Albumin 3.4 g/dL (3.4-5.0); Calcium 8.9 mg/dL (8.5-10.1); Potassium 3.8 mmol/L (3.5-5.1)
[2021-05-23 16:23] LABS: BUN/Creatinine Ratio 12.3; Bilirubin, Total 0.2 mg/dL (0.2-1.0); Total Protein 7.5 g/dL (6.4-8.2)
[2021-05-23 16:26] LABS: INR 0.99 (0.9-1.15); Partial Thromboplastin Time 27.1 sec (23.6-33.0)
[2021-05-23 20:12] VITALS: BP 122/81
== END 2021-05-24 02:14 | disposition home or self-care (01) ==
LOC: ER 15:09
DX: O20.0 Threatened abortion (principal); Z88.6 Allergy status to analgesic agent; Z88.1 Allergy status to other antibiotic agents; Z3A.01 Less than 8 weeks gestation of pregnancy
CPT/HCPCS: 36415; 76801; 76817; 80053; 84702; 85025; 85610; 85730

== ENCOUNTER 2021-05-26 06:07 | Emergency (ER) | payer MEDICAID ==
[~2021-05-26] VITALS: Ht 180.3 cm; Wt 113.4 kg
[2021-05-26 06:48] VITALS: BP 170/70
[2021-05-26] MEDS ORDERED: TETANUS-DIPTH-ACEL PERTUSSIS 0.5ML SYR Tdap IM ONE (07:00)
== END 2021-05-26 07:16 | disposition home or self-care (01) ==
LOC: ER 06:07
DX: S61.216A Laceration without foreign body of right little finger without damage to nail, initial encounter (principal); Z79.899 Other long term (current) drug therapy; Z88.8 Allergy status to other drugs, medicaments and biological substances; Z88.5 Allergy status to narcotic agent; W26.0XXA Contact with knife, initial encounter; Y93.89 Activity, other specified; Y92.89 Other specified places as the place of occurrence of the external cause; Y99.8 Other external cause status
CPT/HCPCS: 12001; 90471; 90715

== ENCOUNTER 2021-07-07 07:41 | Emergency (ER) | payer MEDICAID ==
[~2021-07-07] VITALS: Ht 180.3 cm; Wt 96.6 kg
[2021-07-07 08:38] LABS: Urine Bacteria FEW /hpf (None Seen); Urine Blood Negative /uL (Negative); Urine Hyaline Cast FEW /lpf (0 - 2); Urine Mucus FEW (None Seen); Urine Specific Gravity 1.016 (1.001-1.035); Urine WBC 30 /hpf (0 - 5)
[2021-07-07 09:42] VITALS: BP 124/83
== END 2021-07-07 10:03 | disposition home or self-care (01) ==
LOC: ER 07:41
DX: N39.0 Urinary tract infection, site not specified (principal); Z32.02 Encounter for pregnancy test, result negative; Z88.6 Allergy status to analgesic agent; Z88.8 Allergy status to other drugs, medicaments and biological substances
CPT/HCPCS: 76856; 81001; 81025

== ENCOUNTER 2022-01-23 07:33 | Emergency (ER) | payer MEDICAID ==
[~2022-01-23] VITALS: Ht 180.3 cm; Wt 97.5 kg
[2022-01-23 07:46] VITALS: BP 119/76
[2022-01-23] MEDS ORDERED: PENICILLIN G BENZ 1200000 UNITS/2 ML SYRG IM ONE (08:00)
[2022-01-23] MEDS ORDERED: cefTRIAXone SOD 1,000 MG VL IM ONE (08:00)
[2022-01-23] MEDS ORDERED: AZIT500T66 PO (08:10)
[2022-01-23] MEDS ORDERED: LIDO2SOL23 MT (08:10)
== END 2022-01-23 08:16 | disposition home or self-care (01) ==
LOC: ER 07:33
DX: J03.90 Acute tonsillitis, unspecified (principal); Z79.2 Long term (current) use of antibiotics; Z79.899 Other long term (current) drug therapy; Z88.8 Allergy status to other drugs, medicaments and biological substances
CPT/HCPCS: 96372; 99283; J0561; J0696

== ENCOUNTER 2022-02-16 12:33 | Emergency (ER) | payer MEDICAID ==
[~2022-02-16] VITALS: Ht 180.3 cm; Wt 97.5 kg
[~2022-02-16 12:33] MED LIST changes: +AZIT500T66 PO; +LIDO2SOL23 MT
[2022-02-16 16:34] LABS: Albumin 3.6 g/dL (3.4-5.0); BUN/Creatinine Ratio 9.2; Calcium 8.7 mg/dL (8.5-10.1); Magnesium 2.1 mg/dL (1.6-2.6); Potassium 3.8 mmol/L (3.5-5.1)
[2022-02-16 16:38] LABS: Bilirubin, Total 0.3 mg/dL (0.2-1.0); Total Protein 7.3 g/dL (6.4-8.2)
[2022-02-16] MEDS ORDERED: LORazepam 0.5 MG TAB PO ONE (16:45)
[2022-02-16] MEDS ORDERED: ACETAMINOPHEN 325 MG TAB PO ONE (16:45)
[2022-02-16 16:52] LABS: INR 1.03 (0.9-1.15); Partial Thromboplastin Time 26.5 sec (23.6-33.0)
[2022-02-16 17:22] LABS: Basophils # (auto) 0 10 ^3/uL (0-0.2); Basophils % (auto) 0.5 % (0.0-2.0); Eosinophils # (auto) 0 10 ^3/uL (0-0.8); Eosinophils % (auto) 0.7 % (0.0-7.0); Hematocrit 38.2 % (36.0-46.0); Hemoglobin 12.7 g/dL (12.2-16.2); Lymphocytes # (auto) 2.1 10 ^3/uL (0.4-5.4); Mean Corpuscular Hgb Conc. 33.3 g/dL (32.0-36.0); Mean Corpuscular Volume 87.3 fL (80.0-100.0); Monocytes # (auto) 0.5 10 ^3/uL (0-1.3); Monocytes % (auto) 7.1 % (0.0-12.0); Neutrophils # (auto) 4.6 10 ^3/uL (1.6-8.6); Neutrophils % (auto) 62.7 % (37.0-80.0); Nucleated Red Blood Cells % 0.1 %; Red Blood Cells 4.38 10^6/uL (4.0-5.20); Red Cell Distribution Width 14.3 % (11.8-14.3); White Blood Cell 7.4 10^3/uL (4.4-10.8)
[2022-02-16] MEDS ORDERED: IOHEXOL 350 MG/ML 100ML IJ ONE (17:33)
[2022-02-16 18:04] VITALS: BP 130/89
== END 2022-02-16 18:52 | disposition left against medical advice (07) ==
LOC: ER 12:33
DX: N93.8 Other specified abnormal uterine and vaginal bleeding (principal); R07.9 Chest pain, unspecified; R42 Dizziness and giddiness; T47.1X5A Adverse effect of other antacids and anti-gastric-secretion drugs, initial encounter; Y92.89 Other specified places as the place of occurrence of the external cause
CPT/HCPCS: 36415; 71045; 80053; 81025; 83735; 83880; 84484; 85379; 85610; 85730; 93005

== ENCOUNTER 2023-04-01 07:37 | Emergency (ER) | payer MEDICAID, OTHER ==
[~2023-04-01] VITALS: Ht 180.3 cm; Wt 106.6 kg
[~2023-04-01 07:37] MED LIST changes: -ACET-1156 PO; +ACET-1881 PO; -LIDO2SOL23 MT; +LIDO2SOL26 MT
[2023-04-01 08:12] VITALS: BP 120/66; PULSE 74; RESP 18; O2SAT 99
[2023-04-01] MEDS ORDERED: ONDANSETRON ODT 4 MG TAB PO ONE (08:45)
[2023-04-01] MEDS ORDERED: ACETAMINOPHEN 500 MG TAB PO ONE (08:45)
[2023-04-01 08:53] VITALS: TEMP 97.9
[2023-04-01] MEDS ORDERED: ZOFR4T PO (09:21)
[2023-04-01 09:39] LABS: Hepatitis B Surface Antibody Positive (Negative)
[2023-04-01 11:52] LABS: Hepatitis B Surface Antigen Negative (Negative)
== END 2023-04-01 09:35 | disposition home or self-care (01) ==
LOC: ER 07:37
DX: F41.9 Anxiety disorder, unspecified (principal); R51.9 Headache, unspecified; Z77.21 Contact with and (suspected) exposure to potentially hazardous body fluids; Z88.6 Allergy status to analgesic agent; Z88.8 Allergy status to other drugs, medicaments and biological substances; Z79.01 Long term (current) use of anticoagulants; Z20.5 Contact with and (suspected) exposure to viral hepatitis
CPT/HCPCS: 36415; 81002; 81025; 86703; 86706; 86803; 87340; 99283; Q0162

== ENCOUNTER 2023-04-04 14:38 | Inpatient (IN) | payer MEDICAID ==
[~2023-04-04] VITALS: Ht 180.3 cm; Wt 102.5 kg
[~2023-04-04 14:38] MED LIST changes: +ZOFR4T PO
[2023-04-04 15:21] LABS: Basophils # (auto) 0 10 ^3/uL (0-0.2); Basophils % (auto) 0.4 % (0.0-2.0); Eosinophils # (auto) 0.1 10 ^3/uL (0-0.8); Eosinophils % (auto) 0.9 % (0.0-7.0); Hematocrit 45.3 % (36.0-46.0); Hemoglobin 15.2 g/dL (12.2-16.2); Lymphocytes # (auto) 2.1 10 ^3/uL (0.4-5.4); Lymphocytes % (auto) 30.2 % (10.0-50.0); Mean Corpuscular Hemoglobin 28.7 pg (28.0-32.0); Mean Corpuscular Hgb Conc. 33.5 g/dL (32.0-36.0); Mean Corpuscular Volume 85.5 fL (80.0-100.0); Monocytes # (auto) 0.5 10 ^3/uL (0-1.3); Monocytes % (auto) 6.5 % (0.0-12.0); Neutrophils # (auto) 4.4 10 ^3/uL (1.6-8.6); Nucleated Red Blood Cells % 0.1 %; Red Cell Distribution Width 13.8 % (11.8-14.3)
[2023-04-04 15:32] LABS: Albumin 4.3 g/dL (3.4-5.0); Calcium 9.3 mg/dL (8.5-10.1); Potassium 3.9 mmol/L (3.5-5.1)
[2023-04-04 15:35] LABS: BUN/Creatinine Ratio 17.9 (10.0-20.0); Bilirubin, Total 0.7 mg/dL (0.2-1.0); Total Protein 8.4 g/dL (6.4-8.2)
[2023-04-04] MEDS ORDERED: SODIUM CHLORIDE 0.9% 1,000 ML IV ONE ×2 (15:45)
[2023-04-04] MEDS ORDERED: ONDANSETRON HCL 4 MG/2 ML VIAL IV ONE (15:45)
[2023-04-04] MEDS ORDERED: ONDANSETRON HCL 4 MG/2 ML VIAL IV PRN (18:00)
[2023-04-04] MEDS ORDERED: MORPHINE SULFATE INJ 2 MG/ml SYRG IV PRN (18:00)
[2023-04-04] MEDS: SODIUM CHLORIDE 0.9% 1,000 ML IV SCH (18:00)
[2023-04-04] MEDS ORDERED: DOCUSATE SOD 100 MG CAP PO PRN ×2 (18:00→22:45)
[2023-04-04 22:00] VITALS: BP 129/69; PULSE 76; RESP 16; TEMP 98.1; O2SAT 99
[2023-04-04] MEDS: ONDANSETRON HCL 4 MG/2 ML VIAL IV PRN (22:58)
[2023-04-04] MEDS: MORPHINE SULFATE INJ 2 MG/ml SYRG IV PRN (23:07)
[2023-04-04 23:50] VITALS: BP 129/69; PULSE 76; RESP 18; TEMP 98.4
[2023-04-05] MEDS: SODIUM CHLORIDE 0.9% 1,000 ML IV SCH ×2 (02:20→15:25)
[2023-04-05] MEDS: ONDANSETRON HCL 4 MG/2 ML VIAL IV PRN ×3 (03:17→12:13)
[2023-04-05] MEDS: MORPHINE SULFATE INJ 2 MG/ml SYRG IV PRN ×3 (03:24→12:14)
[2023-04-05 04:57] VITALS: BP 101/42; PULSE 60; RESP 16; TEMP 98.5; O2SAT 98
[2023-04-05 06:47] LABS: Basophils # (auto) 0 10 ^3/uL (0-0.2); Basophils % (auto) 0.4 % (0.0-2.0); Eosinophils # (auto) 0.1 10 ^3/uL (0-0.8); Eosinophils % (auto) 1.6 % (0.0-7.0); Hematocrit 37.9 % (36.0-46.0); Hemoglobin 12.7 g/dL (12.2-16.2); Lymphocytes # (auto) 1.9 10 ^3/uL (0.4-5.4); Lymphocytes % (auto) 32.3 % (10.0-50.0); Mean Corpuscular Hemoglobin 28.9 pg (28.0-32.0); Mean Corpuscular Hgb Conc. 33.6 g/dL (32.0-36.0); Monocytes # (auto) 0.4 10 ^3/uL (0-1.3); Monocytes % (auto) 7.7 % (0.0-12.0); Neutrophils # (auto) 3.4 10 ^3/uL (1.6-8.6); Nucleated Red Blood Cells % 0.1 %; Red Blood Cells 4.41 10^6/uL (4.0-5.20); Red Cell Distribution Width 13.7 % (11.8-14.3); White Blood Cell 5.8 10^3/uL (4.4-10.8)
[2023-04-05 07:07] LABS: Potassium 3.7 mmol/L (3.5-5.1)
[2023-04-05 07:14] LABS: Albumin 3.2 g/dL (3.4-5.0); Bilirubin, Total 0.6 mg/dL (0.2-1.0); Calcium 8.4 mg/dL (8.5-10.1); Total Protein 6.8 g/dL (6.4-8.2)
[2023-04-05 09:00] VITALS: BP 101/53; PULSE 77; RESP 17; TEMP 98.2; O2SAT 97
[2023-04-05 13:00] VITALS: BP 123/73; PULSE 65; RESP 18; TEMP 98.2; O2SAT 97
[2023-04-05] MEDS ORDERED: SODIUM CHLORIDE 0.9% 1,000 ML IV SCH (15:45)
[2023-04-05 17:00] VITALS: BP 121/74; PULSE 69; RESP 17; TEMP 98.1; O2SAT 99
[2023-04-05] MEDS ORDERED: HYDROcodone-ACET 7.5/325MG TAB PO ONE (17:00)
[2023-04-05] MEDS ORDERED: ACETAMINOPHEN 325 MG TAB PO ONE (17:00)
[2023-04-05] MEDS ORDERED: traMADol HCL 50 MG TAB PO PRN (18:15)
[2023-04-05 18:22] VITALS: BP 121/74; PULSE 69; RESP 17; TEMP 98.1; O2SAT 99
== END 2023-04-05 19:01 | disposition home or self-care (01) | DRG 249 ==
LOC: EDUNIT# 14:38 → ER 14:38 → OVERFLOW 18:00 → CENTRAL 21:35
PROVIDERS: ADMIT Internal Medicine; ATTEND Student in an Organized Health Care Education/Training Program
DX: A08.4 Viral intestinal infection, unspecified (principal); E86.0 Dehydration; Z77.098 Contact with and (suspected) exposure to other hazardous, chiefly nonmedicinal, chemicals; Z88.8 Allergy status to other drugs, medicaments and biological substances; Z88.5 Allergy status to narcotic agent
CPT/HCPCS: 36415; 71045; 74176; 80053; 83690; 84484; 84702; 85025; 93005; G0378; J2405

== ENCOUNTER 2023-08-09 10:42 | Emergency (ER) | payer MEDICAID, OTHER ==
[~2023-08-09] VITALS: Ht 180.3 cm; Wt 101.3 kg
[2023-08-09 11:22] VITALS: BP 130/79; PULSE 70; RESP 16; O2SAT 98
== END 2023-08-09 13:11 | disposition left against medical advice (07) ==
LOC: ER 10:42
DX: M79.672 Pain in left foot (principal); M79.671 Pain in right foot; M79.642 Pain in left hand; Z53.21 Procedure and treatment not carried out due to patient leaving prior to being seen by health care provider; W19.XXXA Unspecified fall, initial encounter; Y93.89 Activity, other specified; Y92.89 Other specified places as the place of occurrence of the external cause; Y99.8 Other external cause status

== ENCOUNTER 2023-08-12 03:51 | Emergency (ER) | payer OTHER ==
[~2023-08-12] VITALS: Ht 180.3 cm; Wt 107.0 kg
[2023-08-12] MEDS ORDERED: KETOROLAC TROMETH 30 MG/ML 1ML VIAL IM ONE (07:15)
[2023-08-12 07:48] VITALS: BP 122/72; PULSE 86; RESP 18; TEMP 98.2; O2SAT 98
== END 2023-08-12 08:51 | disposition home or self-care (01) ==
LOC: ER 03:51
DX: M25.531 Pain in right wrist (principal); M79.605 Pain in left leg; Z79.899 Other long term (current) drug therapy; Z88.8 Allergy status to other drugs, medicaments and biological substances; W18.39XA Other fall on same level, initial encounter; Y93.89 Activity, other specified; Y92.89 Other specified places as the place of occurrence of the external cause; Y99.8 Other external cause status
CPT/HCPCS: 96372; 99283; J1885